=== PATIENT | female | born 1960 | race Caucasian/White ===

== ENCOUNTER 2020-03-22 23:53 | Emergency (ER) | payer BC ==
[2020-03-23 00:06] VITALS: BP 150/73; PULSE 73; TEMP 98.1; BMI 21.1
--- NOTE | 2020-03-23 00:18 | PDOC ---
History of Present Illness - General Chief Complaint: Chest Pain Stated Complaint: CHEST PAIN Time Seen by Provider: 03/23/20 00:17 - History of Present Illness Initial Comments: This 59-year-old woman with a history of hypothyroidism/HLD/MVP presents with 3 days of pain below her left breast. She states that the pain is sharp and occurs with deep breathing, movement of her upper torso, laughing; pain was mild at first and has been worsening over the last 48 hours. No history of shortness of breath, cough, fever/chills. She denies abdominal pain, nausea/vomiting. She cannot recall any overuse or trauma to the area. Non-smoker, no history of HTN/DM/strong family history of coronary artery disease/obesity Medications as noted below Non-smoker; no daily alcohol or recreational drug use 03/23/20 01:32 Past History - Medical History Allergies/Adverse Reactions: Allergies Allergy/AdvReac Type Severity Reaction Status Date / Time amoxicillin [From Augmentin] Allergy Verified 03/22/20 23:57 clavulanic acid Allergy Verified 03/22/20 23:57 [From Augmentin] Home Medications: Ambulatory Orders Aspirin [Ecotrin] 81 mg PO DAILY 03/22/20 Levothyroxine [Synthroid -] 88 mcg PO DAILY 03/22/20 Simvastatin 40 mg PO DAILY 03/22/20 COPD: No Hypercholesterolemia: Yes Thyroid Disease: Yes - Psycho-Social/Smoking History Smoking History: Never smoked Review of Systems - Review of Systems Able to Perform ROS?: Yes Comments:: 12 point review of systems is negative except for what is noted in the history of present illness *Physical Exam - Vital Signs Last Vital Signs Temp Pulse Resp BP Pulse Ox 98.1 F 73 16 150/73 100 03/23/20 00:00 03/23/20 00:00 03/23/20 00:00 03/23/20 00:00 03/23/20 00:00 - Physical Exam GENERAL: Adult female, alert and oriented x3, no acute distress HEAD: Normal with no signs of trauma. EYES: PERRLA, EOMI, sclera anicteric, conjunctiva clear. ENT: Ears normal, nares patent, oropharynx clear without exudates. Moist mucous membranes. NECK: Normal range of motion, supple without lymphadenopathy, JVD, or masses. LUNGS: Breath sounds equal, clear to auscultation bilaterally. No wheezes, and no crackles. No bruits/rubs heard CHEST WALL: Mild tenderness to palpation left sixth rib, midclavicular line; no crepitus or step-offs palpated No other tenderness or other abnormality of chest wall noted. HEART:Regular rate and rhythm, normal S1 and S2,2/6 systolic murmur left lower sternal border, no rub or gallop. ABDOMEN:.normal bowel sounds No guarding,tenderness or rebound.No masses No distention. EXTREMITIES: Normal range of motion, no edema. No clubbing or cyanosis. No erythema, or tenderness. NEUROLOGICAL: Cranial nerves II through XII grossly intact. Normal speech. No focal neurological deficits Twelve-lead electrocardiogram performed: Normal sinus rhythm 69 bpm; intervals, axis and waveforms are all normal. No evidence of acute ST or T wave abnormalities. No evidence of acute cardiac arrhythmia. No previous EKG tracings available for comparison 03/23/20 01:32 ED Treatment Course - LABORATORY CBC & Chemistry Diagram: 03/23/20 00:57 03/23/20 00:57 Medical Decision Making - Medical Decision Making As noted above, this 59-year-old woman with a history of hyperlipidemia and hypothyroidism presents with few day history of left-sided chest pain, worse with deep breathing, laughing, twisting of upper body. No associated symptoms. Exam as noted with mild tenderness noted at the area of pain. EKG was normal as noted above. Because of the presence of risk factors, troponin as well as CBC and chemistry profile sent. Toradol 30 mg IV administered while awaiting laboratory results Patient reports significant decrease in her pain after IV Toradol Laboratory values are essentially normal with no elevation of troponin; potassium was minimally decreased at 3.4 and the remainder of the values were unremarkable Results discussed with the patient. Clinical presentation most consistent with atypical chest pain, likely chest wall origin. Also possible, though less likely would be pleuritis. She was discharged with instructions to avoid strenuous upper body activity for the next few days. She can take nonsteroidal anti-inflammatory medications (OTC) as needed for pain, taking the doses with food at all times. She should return to the ER if she has any shortness of breath, cough, fevers/chills. She should follow-up with her general medical doctor within the next 3-4 days Discharge - Discharge Information Problems reviewed: Yes Clinical Impression/Diagnosis: Atypical chest pain Condition: Stable Disposition: HOME - Follow up/Referral - Patient Discharge Instructions Patient Printed Discharge Instructions: DI for Atypical Chest Pain Additional Instructions: rest, drink plenty of fluids Ibuprofen/Acetaminophen/Naproxen as needed for pain Always take ibuprofen/naproxen with food avoid strenuous activity involving upper body for the next several days followup with your doctor within the next 3-4 days return to ER if you have persistent pain or develop shortness of breath, cough or fever - Post Discharge Activity
[2020-03-23] MEDS ORDERED: KETOROLAC TROMETHAMINE 30 MG/1 ML VIAL IVPUSH ONE (00:35)
[2020-03-23] MEDS ORDERED: KETOROLAC TROMETHAMINE 30 MG/1 ML VIAL ONE (00:43)
[2020-03-23 01:54] LABS: BASO % 1.2 % (0-2.0); EOS % 2.6 % (0-4.5); HEMATOCRIT 35.8 % (32.4-45.2); LYMPH % 34.4 % (8-40); MCH 29.4 pg (25.7-33.7); MCHC 33.6 g/dl (32.0-36.0); MEAN CELL VOLUME 87.5 fl (80-96); MEAN PLT VOLUME 9.9 fl (7.5-11.1); NEUT % 48.8 % (42.8-82.8); PLATELET COUNT 211 K/MM3 (134-434); RBC 4.09 M/mm3 (3.60-5.2); RDW 14.5 % (11.6-15.6); WHITE BLOOD COUNT 6.9 K/mm3 (4.0-10.0)
[2020-03-23 02:27] LABS: ALBUMIN 3.8 g/dl (3.4-5.0); ALK PHOS 60 U/L (45-117); ANION GAP 7 MMOL/L (8-16); BILIRUBIN,TOTAL 0.3 mg/dL (0.2-1); BLOOD UREA NITROGEN 14.8 mg/dL (7-18); CALCIUM 9.1 mg/dL (8.5-10.1); CHLORIDE 107 mmol/L (98-107); CO2 28 mmol/L (21-32); CREATININE 0.7 mg/dL (0.55-1.3); GLUCOSE,RANDOM 94 mg/dL (74-106); POTASSIUM 3.4 mmol/L (3.5-5.1); SGOT/AST 16 U/L (15-37); SGPT/ALT 21 U/L (13-61); SODIUM 142 mmol/L (136-145); TOT PROT 6.6 g/dl (6.4-8.2)
--- NOTE | 2020-03-23 14:59 | EKG ---
Test Reason : Blood Pressure : / mmHG Vent. Rate : 069 BPM Atrial Rate : 069 BPM P-R Int : 162 ms QRS Dur : 086 ms QT Int : 408 ms P-R-T Axes : -03 051 028 degrees QTc Int : 437 ms NORMAL SINUS RHYTHM NORMAL ECG NO PREVIOUS ECGS AVAILABLE Confirmed by CURLY ANGULO MD ([id number]) on 03/23/2020 2:59:04 PM Referred By: Confirmed By:CURLY ANGULO MD
== END 2020-03-23 02:45 | disposition home or self-care (01) ==
LOC: FER 23:53
PROC: 3E033GC Introduction of Other Therapeutic Substance into Peripheral Vein, Percutaneous Approach (ICD-10-PCS; principal; 2020-03-23)
DX: R07.89 Other chest pain (principal)
CPT/HCPCS: 36415; 80053; 82550; 84484; 85025; 93005; 99284-25

== ENCOUNTER 2021-05-22 04:50 | Day surgery (SDC) | payer BC ==
[2021-05-21 13:12] VITALS: BMI 20.2
[2021-05-22 14:03] VITALS: BP 109/67; PULSE 56; TEMP 97.5
== END 2021-05-22 14:17 | disposition home or self-care (01) ==
LOC: JASU-ENDO 04:50
PROVIDERS: ATTEND Internal Medicine Gastroenterology
PROC: 0DJD8ZZ Inspection of Lower Intestinal Tract, Via Natural or Artificial Opening Endoscopic (ICD-10-PCS; principal; 2021-05-22 12:45)
DX: Z12.11 Encounter for screening for malignant neoplasm of colon (principal); K57.30 Diverticulosis of large intestine without perforation or abscess without bleeding; K64.8 Other hemorrhoids; Z80.0 Family history of malignant neoplasm of digestive organs

== ENCOUNTER 2022-02-28 16:05 | Emergency (ER) | payer BC ==
[2022-02-28 16:16] VITALS: BP 107/68; PULSE 80; TEMP 99; BMI 20.9
== END 2022-02-28 17:05 | disposition home or self-care (01) ==
LOC: FER 16:05
DX: H00.011 Hordeolum externum right upper eyelid (principal)
CPT/HCPCS: 99281-25